=== PATIENT | male | born 1975 | race Caucasian/White ===

== ENCOUNTER 2017-10-15 07:41 | Day surgery (SDC) | payer OTHER ==
[2017-10-14 15:07] VITALS: BMI 29.0
[2017-10-15] MEDS ORDERED: Simethicone 40 mg/0.6 ml Liquid (30 ml) ONE (08:09)
[2017-10-15] MEDS ORDERED: Midazolam 2 MG/2 ML VIAL ONE (08:22)
[2017-10-15] MEDS ORDERED: Propofol 10 mg/ml Inj (20 ML) ONE (08:23)
[2017-10-15 09:00] VITALS: TEMP 98.6
[2017-10-15 09:09] VITALS: PULSE 63
[2017-10-15 09:26] VITALS: RESP 17
[2017-10-15 11:17] VITALS: BP 112/72; O2SAT 100
== END 2017-10-15 10:30 | disposition home or self-care (01) ==
LOC: C.ENDO 07:41
PROVIDERS: ATTEND Internal Medicine
DX: K21.0 Gastro-esophageal reflux disease with esophagitis (principal); K58.1 Irritable bowel syndrome with constipation; K62.89 Other specified diseases of anus and rectum; K63.5 Polyp of colon; K64.8 Other hemorrhoids; I10 Essential (primary) hypertension; E78.00 Pure hypercholesterolemia, unspecified; Z80.0 Family history of malignant neoplasm of digestive organs; Z80.9 Family history of malignant neoplasm, unspecified; Z80.6 Family history of leukemia; F17.200 Nicotine dependence, unspecified, uncomplicated; K58.0 Irritable bowel syndrome with diarrhea; K59.00 Constipation, unspecified
CPT/HCPCS: 43239; 45380; 88305; 88313; 88342; J2001; J2250; J2704; J3010